=== PATIENT | male | born 1990 | race Caucasian/White ===

== ENCOUNTER → 2020-08-22 10:18 | Outpatient (BNVA) | payer OTHER, SELFPAY | PROVIDERS: Family Provider Pediatrics Adolescent Medicine; Visit Provider Nurse Practitioner Family | DX: J06.9 Acute upper respiratory infection, unspecified (principal); Z11.59 Encounter for screening for other viral diseases | CPT/HCPCS: 87635 ==

== ENCOUNTER 2022-02-23 09:58 | Emergency (ER) | payer SELFPAY ==
[2022-02-23 10:02] VITALS: BP 119/84; PULSE 95; RESP 19; TEMP 36.4; O2SAT 98; BMI 29.9
--- NOTE | 2022-02-23 10:42 | W.ED.ABDPA2 ---
Documented by User: Alis Bridges PA-C 02/23/22 12:50 HPI - Abdominal Pain General: Chief Complaint: Abdominal Pain Stated Complaint: abdomen pain, dizzy Time Seen by Provider: 02/23/22 10:29 Source: patient Mode of arrival: ambulatory Limitations: no limitations History of Present Illness: 31-year-old male presents to the ER today for abdominal pain x2 weeks. Patient reports his pain is located in the epigastric region and is an achy pain that comes and goes. Patient reports he has had nausea and vomiting every day however he is able to keep some food and liquids down. Patient denies any fever or chills. Patient denies any diarrhea or constipation. Patient reports some issues with walking and describes it as not being able to put his foot in front of him where he would like. He denies any weakness however though. He reports this that she has been going on for at least 2 weeks also. Patient reports he has omeprazole at home which she has been taking as it was suggested in the past he had possibly ulcers. Review of Systems General: Reports: 10 or more systems reviewed and unremarkable except in HPI and below Physical Exam Const: COMMON NORMALS: no acute distress, average body habitus, patient oriented x3, no limitations, healthy appearing, alert and well nourished HENMT: COMMON NORMALS: normocephalic and atraumatic HEAD & SCALP: normocephalic and atraumatic MOUTH: moist mucous membranes not abnormal Eye: COMMON NORMALS: conjunctivae normal CONJUNCTIVA: Yes conjunctivae normal Neck/C-Spine: COMMON NORMALS: full ROM and no lymphadenopathy Resp: COMMON NORMALS: normal respiratory effort, No retractions and clear to auscultation bilaterally AUSCULTATION: clear to auscultation bilaterally Cardio: COMMON NORMALS: regular rate, regular rhythm and No murmurs present (Cardio) RATE: regular rate RHYTHM: regular rhythm GI: COMMON NORMALS: Normal to inspection, nondistended, normoactive bowel sounds present, Soft to palpation and non-tender PALPATION: Yes Soft to palpation OTHER: Abdominal exam was unremarkable. : COMMON NORMALS: Yes no CVA tenderness BLADDER/KIDNEY EXAM: Yes no CVA tenderness Back/Pelvis: COMMON NORMALS: no CVA tenderness Extremity: COMMON NORMALS: normal to inspection, full ROM and no clubbing, cyanosis or edema Neuro: COMMON NORMALS: patient oriented x3 SENSORIUM/ORIENTATION: Yes alert COORDINATION/BALANCE: iejcau-bp-ajya test normal, hlnv-ds-[id number] test normal and tandem gait normal SPEECH: speech normal GAIT: Yes Normal gait present COORDINATION: hootec-up-gamf test normal, okkw-or-ydns test normal and tandem gait normal Psych: COMMON NORMALS: mental status grossly normal, Normal thought process present, cooperative, normal affect and speech normal SPEECH: Yes normal speech THOUGHT PROCESS: Normal thought process present Skin: COMMON NORMALS: no rashes or lesions noted GENERAL SKIN EXAM: no rashes or lesions noted Course ED course: 31-year-old male presents to the ER today for abdominal pain and decreased appetite for 2 weeks. He reports nausea and vomiting daily however is able to keep solids and liquids down. Patient also complains of some issues with walking. This was not observed today and his strength is normal in the ER. Neuro exam appears normal. We will get labs to rule out any electrolyte abnormalities. Vital Signs: Vital signs: Vital Signs Temperature 97.6 F 02/23/22 10:02 Pulse Rate 71 02/23/22 11:13 Respiratory Rate 14 02/23/22 11:13 Blood Pressure 137/67 02/23/22 11:13 Pulse Oximetry 97 02/23/22 11:13 MDM - Abdominal Pain Medical Decision Making 31-year-old male presents to the ER today for 2 weeks of nausea and vomiting. Patient is able to keep down some foods however has daily episodes of this. He reports a history of gastric ulcers for which she takes omeprazole. Patient also reports some weakness in his legs however nothing is noted in the ER exam is normal. CT of the abdomen and pelvis indicates probable enteritis which is consistent with patient's symptoms. Discussed findings with patient. Patient also has an elevated hemoglobin and I recommended he follow-up with his PCP to discuss a repeat CBC to rule out polycythemia vera given his other symptoms of dizziness and issues with his legs. Follow-up with PCP in 3 to 5 days. Return to the ER with new or worsening symptoms. Patient verbalized understanding and is in agreement with the treatment plan. Lab Data reviewed; suggest repeat CBC to rule out polycythemia vera : 02/23/22 11:00 02/23/22 11:00 Labs/Radiology: Radiology Impressions Abdomen/Pelvis CT 02/23/22 11:50 IMPRESSION: 1. Questionable mild wall thickening of the duodenal sweep and proximal jejunal loops in the left upper quadrant. Mild nonspecific enteritis could produce this appearance. 2. Additional findings, as above. Laboratory Results WBC 9.4 10^3/uL (4.0-10.0) 02/23/22 11:00 RBC 5.87 10^6/uL (4.1-5.3) H 02/23/22 11:00 Hgb 18.6 g/dL (11.7-16.6) H 02/23/22 11:00 Hct 54.5 % (42.0-52.0) H 02/23/22 11:00 MCV 92.8 fl (80-94) 02/23/22 11:00 MCH 31.7 pg (28.0-34.0) 02/23/22 11:00 MCHC 34.1 g/dL (30.0-36.0) 02/23/22 11:00 RDW 13.1 % (12.1-15.1) 02/23/22 11:00 Plt Count 266 10^3/cmm (130-400) 02/23/22 11:00 MPV 10.4 fL (7.4-10.4) 02/23/22 11:00 Neut % (Auto) 69.9 % 02/23/22 11:00 Lymph % (Auto) 18.4 % 02/23/22 11:00 Bureau % (Auto) 7.9 % 02/23/22 11:00 Eos % (Auto) 2.4 % 02/23/22 11:00 Baso % (Auto) 0.8 % 02/23/22 11:00 Neut # (Auto) 6.58 10^3/uL (1.8-7.7) 02/23/22 11:00 Lymph # (Auto) 1.7 10^3/uL (0.8-4.8) 02/23/22 11:00 Bureau # (Auto) 0.8 10^3/uL (0.2-0.9) 02/23/22 11:00 Eos # (Auto) 0.2 10^3/uL (0.0-0.8) 02/23/22 11:00 Baso # (Auto) 0.1 10^3/uL (0.0-0.1) 02/23/22 11:00 Nucleated RBC % (auto) 0 % 02/23/22 11:00 Nucleated RBCs # 0.0 /100WBC 02/23/22 11:00 Sodium 138 mmol/L (136-145) 02/23/22 11:00 Potassium 4.3 mmol/L (3.5-5.1) 02/23/22 11:00 Chloride 101 mmol/L (98-107) 02/23/22 11:00 Carbon Dioxide 26 mmol/L (22-29) 02/23/22 11:00 Anion Gap 15.3 (5-19) 02/23/22 11:00 BUN 14 mg/dL (6-20) 02/23/22 11:00 Creatinine 0.9 mg/dL (0.7-1.2) 02/23/22 11:00 GFR Calculation 99.8 mL/min (90-130) 02/23/22 11:00 Glucose 97 mg/dL (65-115) 02/23/22 11:00 Calculated Osmolality 286 mOsm/kg (285-295) 02/23/22 11:00 Calcium 9.9 mg/dL (8.5-10.5) 02/23/22 11:00 Total Bilirubin 0.3 mg/dL (0.15-1.2) 02/23/22 11:00 AST 16 U/L (0-40) 02/23/22 11:00 ALT 31 U/L (0-41) 02/23/22 11:00 Alkaline Phosphatase 107 IU/L (40-130) 02/23/22 11:00 Total Protein 7.4 g/dL (6.6-8.7) 02/23/22 11:00 Albumin 4.9 g/dL (3.5-5.2) 02/23/22 11:00 Globulin 2.5 g/dL (1.3-4.6) 02/23/22 11:00 Lipase 18 U/L (13-60) 02/23/22 11:00 Urine Color Yellow (Yellow) 02/23/22 11:50 Urine Appearance Clear (CLEAR) 02/23/22 11:50 Urine pH 6 (5-7) 02/23/22 11:50 Ur Specific [place] 1.015 (1.005-1.030) 02/23/22 11:50 Urine Protein Neg (Negative) 02/23/22 11:50 Urine Glucose (UA) Norm (Normal) 02/23/22 11:50 Urine Ketones Negative (Negative) 02/23/22 11:50 Urine Blood 2+ (Negative) H 02/23/22 11:50 Urine Nitrate Negative (Negative) 02/23/22 11:50 Urine Bilirubin Neg (Negative) 02/23/22 11:50 Urine Urobilinogen Norm mg/dL (Negative) 02/23/22 11:50 Ur Leukocyte Esterase Negative (Negative) 02/23/22 11:50 Urine RBC 0-4 /hpf (0-2) H 02/23/22 11:50 Urine WBC None /hpf (0-5) 02/23/22 11:50 Ur Squamous Epith Cells None /hpf (0-5) 02/23/22 11:50 Amorphous Sediment Not Reportable 02/23/22 11:50 Urine Bacteria Trace /hpf (NONE) 02/23/22 11:50 Urine Mucus 1+ /hpf 02/23/22 11:50 Discharge Plan Discharge Patient Disposition: Home Clinical Impression: Gastroenteritis, Elevated hemoglobin, Dizziness, nonspecific Condition: Stable Prescriptions: New ondansetron HCl 4 mg tablet 4 mg PO Q8H 4 Days Qty: 12 0RF Discharge Orders: Discharge ED (Routine); Ordered 02/23/22 Ordered By: Alis Bridges Discharge Diet: Usual diet Discharge Activity: Resume usual activity Patient Instructions: Opioid Safety Activity Restrictions/Additional Instructions: Take Zofran as prescribed for nausea. Follow-up with PCP in 3 to 5 days to discuss ER visit and discuss a repeat CBC. Brat diet of bananas rice applesauce and toast recommended. Push clear fluids. Return to the ER with new or worsening symptoms. Stand Alone Forms: Work/School Release Coding Level of Care Code ED Rotor Plate Washer for Chg Fwd Exam Comprehensive Documented by User: Taqueria Mcfarland DO 02/24/22 05:42 HPI - Abdominal Pain General: Chief Complaint: Abdominal Pain Stated Complaint: abdomen pain, dizzy Time Seen by Provider: 02/23/22 10:29 Course Vital Signs: Vital signs: Vital Signs Temperature 97.6 F 02/23/22 10:02 Pulse Rate 71 02/23/22 11:13 Respiratory Rate 14 02/23/22 11:13 Blood Pressure 137/67 02/23/22 11:13 Pulse Oximetry 97 02/23/22 11:13 MDM - Abdominal Pain Medical Decision Making 31-year-old male presents to the ER today for 2 weeks of nausea and vomiting. Patient is able to keep down some foods however has daily episodes of this. He reports a history of gastric ulcers for which she takes omeprazole. Patient also reports some weakness in his legs however nothing is noted in the ER exam is normal. CT of the abdomen and pelvis indicates probable enteritis which is consistent with patient's symptoms. Discussed findings with patient. Patient also has an elevated hemoglobin and I recommended he follow-up with his PCP to discuss a repeat CBC to rule out polycythemia vera given his other symptoms of dizziness and issues with his legs. Follow-up with PCP in 3 to 5 days. Return to the ER with new or worsening symptoms. Patient verbalized understanding and is in agreement with the treatment plan. Chart reviewed and patient discussed with midlevel. Agree with assessment and plan. Lab Data : 02/23/22 11:00 02/23/22 11:00 Labs/Radiology: Radiology Impressions Abdomen/Pelvis CT 02/23/22 11:50 IMPRESSION: 1. Questionable mild wall thickening of the duodenal sweep and proximal jejunal loops in the left upper quadrant. Mild nonspecific enteritis could produce this appearance. 2. Additional findings, as above. Laboratory Results WBC 9.4 10^3/uL (4.0-10.0) 02/23/22 11:00 RBC 5.87 10^6/uL (4.1-5.3) H 02/23/22 11:00 Hgb 18.6 g/dL (11.7-16.6) H 02/23/22 11:00 Hct 54.5 % (42.0-52.0) H 02/23/22 11:00 MCV 92.8 fl (80-94) 02/23/22 11:00 MCH 31.7 pg (28.0-34.0) 02/23/22 11:00 MCHC 34.1 g/dL (30.0-36.0) 02/23/22 11:00 RDW 13.1 % (12.1-15.1) 02/23/22 11:00 Plt Count 266 10^3/cmm (130-400) 02/23/22 11:00 MPV 10.4 fL (7.4-10.4) 02/23/22 11:00 Neut % (Auto) 69.9 % 02/23/22 11:00 Lymph % (Auto) 18.4 % 02/23/22 11:00 Bureau % (Auto) 7.9 % 02/23/22 11:00 Eos % (Auto) 2.4 % 02/23/22 11:00 Baso % (Auto) 0.8 % 02/23/22 11:00 Neut # (Auto) 6.58 10^3/uL (1.8-7.7) 02/23/22 11:00 Lymph # (Auto) 1.7 10^3/uL (0.8-4.8) 02/23/22 11:00 Bureau # (Auto) 0.8 10^3/uL (0.2-0.9) 02/23/22 11:00 Eos # (Auto) 0.2 10^3/uL (0.0-0.8) 02/23/22 11:00 Baso # (Auto) 0.1 10^3/uL (0.0-0.1) 02/23/22 11:00 Nucleated RBC % (auto) 0 % 02/23/22 11:00 Nucleated RBCs # 0.0 /100WBC 02/23/22 11:00 Sodium 138 mmol/L (136-145) 02/23/22 11:00 Potassium 4.3 mmol/L (3.5-5.1) 02/23/22 11:00 Chloride 101 mmol/L (98-107) 02/23/22 11:00 Carbon Dioxide 26 mmol/L (22-29) 02/23/22 11:00 Anion Gap 15.3 (5-19) 02/23/22 11:00 BUN 14 mg/dL (6-20) 02/23/22 11:00 Creatinine 0.9 mg/dL (0.7-1.2) 02/23/22 11:00 GFR Calculation 99.8 mL/min (90-130) 02/23/22 11:00 Glucose 97 mg/dL (65-115) 02/23/22 11:00 Calculated Osmolality 286 mOsm/kg (285-295) 02/23/22 11:00 Calcium 9.9 mg/dL (8.5-10.5) 02/23/22 11:00 Total Bilirubin 0.3 mg/dL (0.15-1.2) 02/23/22 11:00 AST 16 U/L (0-40) 02/23/22 11:00 ALT 31 U/L (0-41) 02/23/22 11:00 Alkaline Phosphatase 107 IU/L (40-130) 02/23/22 11:00 Total Protein 7.4 g/dL (6.6-8.7) 02/23/22 11:00 Albumin 4.9 g/dL (3.5-5.2) 02/23/22 11:00 Globulin 2.5 g/dL (1.3-4.6) 02/23/22 11:00 Lipase 18 U/L (13-60) 02/23/22 11:00 Urine Color Yellow (Yellow) 02/23/22 11:50 Urine Appearance Clear (CLEAR) 02/23/22 11:50 Urine pH 6 (5-7) 02/23/22 11:50 Ur Specific [place] 1.015 (1.005-1.030) 02/23/22 11:50 Urine Protein Neg (Negative) 02/23/22 11:50 Urine Glucose (UA) Norm (Normal) 02/23/22 11:50 Urine Ketones Negative (Negative) 02/23/22 11:50 Urine Blood 2+ (Negative) H 02/23/22 11:50 Urine Nitrate Negative (Negative) 02/23/22 11:50 Urine Bilirubin Neg (Negative) 02/23/22 11:50 Urine Urobilinogen Norm mg/dL (Negative) 02/23/22 11:50 Ur Leukocyte Esterase Negative (Negative) 02/23/22 11:50 Urine RBC 0-4 /hpf (0-2) H 02/23/22 11:50 Urine WBC None /hpf (0-5) 02/23/22 11:50 Ur Squamous Epith Cells None /hpf (0-5) 02/23/22 11:50 Amorphous Sediment Not Reportable 02/23/22 11:50 Urine Bacteria Trace /hpf (NONE) 02/23/22 11:50 Urine Mucus 1+ /hpf 02/23/22 11:50 Discharge Plan Discharge Patient Disposition: Home Clinical Impression: Gastroenteritis, Elevated hemoglobin, Dizziness, nonspecific Condition: Stable Prescriptions: New ondansetron HCl 4 mg tablet 4 mg PO Q8H 4 Days Qty: 12 0RF Discharge Orders: Discharge ED (Routine); Ordered 02/23/22 Ordered By: Alis Bridges Discharge Diet: Usual diet Discharge Activity: Resume usual activity Patient Instructions: Opioid Safety Activity Restrictions/Additional Instructions: Take Zofran as prescribed for nausea. Follow-up with PCP in 3 to 5 days to discuss ER visit and discuss a repeat CBC. Brat diet of bananas rice applesauce and toast recommended. Push clear fluids. Return to the ER with new or worsening symptoms. Stand Alone Forms: Work/School Release Coding Level of Care Code ED Rotor Plate Washer for Nick Fwd Exam Comprehensive
[2022-02-23 11:10] LABS: Basophils # 0.1 10^3/uL (0.0-0.1); Basophils % 0.8 %; Eosinophils # 0.2 10^3/uL (0.0-0.8); Eosinophils % 2.4 %; Hematocrit 54.5 % (42.0-52.0); Hemoglobin 18.6 g/dL (11.7-16.6); Lymphocytes # 1.7 10^3/uL (0.8-4.8); Lymphocytes % 18.4 %; Mean Corpuscular HGB Conc 34.1 g/dL (30.0-36.0); Mean Corpuscular Hemoglobin 31.7 pg (28.0-34.0); Mean Corpuscular Volume 92.8 fl (80-94); Mean Platelet Volume 10.4 fL (7.4-10.4); Monocytes # 0.8 10^3/uL (0.2-0.9); Monocytes % 7.9 %; Neutrophils # 6.58 10^3/uL (1.8-7.7); Neutrophils % 69.9 %; Nucleated Red Blood Cells % 0 %; Platelet Count 266 10^3/cmm (130-400); Red Blood Count 5.87 10^6/uL (4.1-5.3); Red Cell Distribution Width 13.1 % (12.1-15.1); White Blood Count 9.4 10^3/uL (4.0-10.0)
[2022-02-23] MEDS: sodium chloride 0.9% 1,000 ML 999 ML IV (11:10)
[2022-02-23] MEDS: ondansetron 2 mg/ML SDV 2 mL 4 MG IVP (11:10)
[2022-02-23 11:13] VITALS: BP 137/67; PULSE 71; RESP 14; O2SAT 97
[2022-02-23 11:34] LABS: Alanine Aminotransferase 31 U/L (0-41); Albumin Level 4.9 g/dL (3.5-5.2); Alkaline Phosphatase 107 IU/L (40-130); Anion Gap 15.3 (5-19); Aspartate Amino Transferase 16 U/L (0-40); Blood Urea Nitrogen 14 mg/dL (6-20); Calcium 9.9 mg/dL (8.5-10.5); Carbon Dioxide 26 mmol/L (22-29); Chloride 101 mmol/L (98-107); Globulin 2.5 g/dL (1.3-4.6); Glomerular Filtration Rate 99.8 mL/min (90-130); Glucose 97 mg/dL (65-115); Lipase 18 U/L (13-60); Osmolality Calculated 286 mOsm/kg (285-295); Potassium 4.3 mmol/L (3.5-5.1); Sodium 138 mmol/L (136-145); Total Bilirubin 0.3 mg/dL (0.15-1.2); Total Protein 7.4 g/dL (6.6-8.7)
--- NOTE | 2022-02-23 11:50 | CTR_ITS ---
PROCEDURE INFORMATION: Exam: CT Abdomen And Pelvis With Contrast Exam date and time: 02/23/2022 12:07 PM Age: 31 years old Clinical indication: Abdominal pain; Epigastric; Additional info: Epigastric/diffuse abdominal pain x 2 weeks TECHNIQUE: Imaging protocol: Computed tomography of the abdomen and pelvis with contrast. Axial, coronal and sagittal reformatted images were created and reviewed. Radiation optimization: All CT scans at this facility use at least one of these dose optimization techniques: automated exposure control; mA and/or kV adjustment per patient size (includes targeted exams where dose is matched to clinical indication); or iterative reconstruction. Contrast material: OMNI 300; Contrast volume: 95 ml; Contrast route: INTRAVENOUS (IV); COMPARISON: CR Upper GI w Air and SBS* [id number] 10/07/2019 8:58 AM RADIATION DOSE METRICS: Total DLP (mGy-cm): 1759.8 FINDINGS: Liver: Unremarkable. Gallbladder and bile ducts: No radiodense gallstones. No biliary ductal dilatation. Pancreas: Unremarkable. Spleen: Unremarkable. Adrenal glands: Normal. No mass. Kidneys and ureters: No mass. No radiodense calculi. No hydronephrosis. Stomach and bowel: Questionable mild wall thickening of the duodenal sweep and proximal jejunal loops in the left upper quadrant. No obstruction. No pneumatosis. Appendix: Normal. Intraperitoneal space: No free fluid. No organized fluid collection. No free air. Vasculature: Unremarkable. No aneurysm. Lymph nodes: No pathologically enlarged lymph nodes. Urinary bladder: Unremarkable as visualized. Reproductive: Unremarkable. Bones/joints: No acute osseous abnormality. Soft tissues: Unremarkable. CT/CT abdomen pelvis w con* [id number] IMPRESSION: 1. Questionable mild wall thickening of the duodenal sweep and proximal jejunal loops in the left upper quadrant. Mild nonspecific enteritis could produce this appearance. 2. Additional findings, as above.
[2022-02-23] MEDS: iohexol 300 mg/mL 100 mL Btl IV (12:03)
[2022-02-23 12:29] LABS: Urine Appearance Clear (CLEAR); Urine Color Yellow (Yellow); pH Urine 6 (5-7)
[2022-02-23 12:30] LABS: Add Urine Microscopic? YES; Bilirubin Urine Neg (Negative); Blood Urine 2+ (Negative); Glucose Urine UA Norm (Normal); Ketones Urine Negative (Negative); Leukocyte Esterase Urine Negative (Negative); Nitrate Urine Negative (Negative); Protein Urine Neg (Negative); Specific Gravity, Urine 1.015 (1.005-1.030); Urobilinogen Urine Norm (Negative)
[2022-02-23 12:31] LABS: Bacteria Urine TRACE /hpf; Mucus Urine 1+ /hpf; RBC Urine 0-4 /hpf (0-2)
[2022-02-23 12:32] LABS: Add Urine Culture? No
== END 2022-02-23 13:00 | disposition home or self-care (01) ==
PROVIDERS: Emergency Medicine; Emergency Provider Physician Assistant
DX: K52.9 Noninfective gastroenteritis and colitis, unspecified (principal); D58.2 Other hemoglobinopathies; R42 Dizziness and giddiness
CPT/HCPCS: 74177; 80053; 81001; 83690; 85025; 96361; 96374; 99283; J2405; J7030; Q9967

== ENCOUNTER 2025-06-10 11:23 | Emergency (ER) | payer SELFPAY ==
[2025-06-10 11:32] VITALS: BP 132/83; PULSE 83; RESP 14; TEMP 36.6; O2SAT 93; BMI 34.8
--- NOTE | 2025-06-10 11:39 | W.ED.EAR ---
HPI - Ear Problem General: Chief complaint: Ear Stated complaint: cant hear out of right ear Time Seen by Provider: 06/10/25 11:28 History of Present Illness: 34-year-old male presents emergency room complaining of difficulty hearing. He thought he had gotten water or some other debris in his ear so he has been using Q-tips. Since doing that its actually gotten worse he has not had any drainage or pain in the ears no blood noted. Associated symptoms: Denies tinnitus Related Data Previous Rx's ?Medication ?Instructions ?Recorded carbamide peroxide 6.5 % ear drops 5 drp otic (ear) DAILY 4 days #15 06/10/25 (Debrox) mL Allergies Allergy/AdvReac Type Severity Reaction Status Date / Time No Known Allergies Allergy Verified 06/10/25 11:34 Review of Systems ENMT: Reports: change in hearing; Denies: tinnitus Physical Exam HENMT: OTHER: TMs bilaterally are occluded by cerumen and the tympanic membrane is obscured. There is no signs of otitis externa no signs of blood or damage to the ear canal Course Vital Signs: Vital signs: Vital Signs Temperature 97.9 F 06/10/25 11:32 Pulse Rate 83 06/10/25 11:32 Respiratory Rate 14 06/10/25 11:32 Blood Pressure 132/83 06/10/25 11:32 Pulse Oximetry 93 06/10/25 11:32 Oxygen Delivery Me thod Room Air 06/10/25 11:32 MDM - Ear Medical Decision Making Bilateral cerumen impaction avoid using Q-tips in the ears use Debrox twice a day until cleared follow-up with primary care No radiology studies performed this visit Discharge Plan Discharge Patient Disposition: Home Clinical Impression: Cerumen impaction Condition: Stable Prescriptions: New Debrox 6.5 % drops 5 drp otic (ear) DAILY 4 Days Qty: 15 0RF Discharge Orders: Discharge ED (Routine); Ordered 06/10/25 Ordered By: Taqueria Mcfarland Discharge Diet: Usual diet Discharge Activity: Increase activity as tolerated Patient Instructions: Opioid Safety, Pain Management, Patient Portal & Camilo Instructions Activity Restrictions/Additional Instructions: Thank you for choosing [facility] for your healthcare needs today. It is very important that you follow up as instructed or that you return to the Emergency Department should you have concerns or if your condition changes or worsens in any way. You are seen in the emergency room with complaints of having difficulty hearing. You have significant wax bilaterally impacted against your eardrum. Avoid using Q-tips use the drops 5 drops in each ear twice a day. If not improving follow-up your primary care doctor they can remove if needed. Print Language: Cam[place]onian Coding Level of Care Code ED Lamp Developer for Nick Cunha
[2025-06-10 11:52] VITALS: BP 127/98; PULSE 46; O2SAT 100
== END 2025-06-10 11:54 | disposition home or self-care (01) ==
PROVIDERS: Emergency Provider Family Medicine
DX: H61.23 Impacted cerumen, bilateral (principal)
CPT/HCPCS: 99283